=== PATIENT | male | born 1945 | race Caucasian/White ===

== ENCOUNTER → 2021-02-10 | Outpatient (CLI) | payer OTHER ==
[~2021-02-10] MED LIST: ASA81BEC PO; ASPIRIN EC325 M1 PO; FLOMAX0.4 MG PO; HYTRIN 2MG CAPSU2 M1 PO; ROSUVASTATIN CA10 MG PO
== END ==
LOC: SJCVC 14:29
PROVIDERS: ATTEND Internal Medicine
DX: R07.89 Other chest pain (principal); I25.10 Atherosclerotic heart disease of native coronary artery without angina pectoris; R93.1 Abnormal findings on diagnostic imaging of heart and coronary circulation; I10 Essential (primary) hypertension; E78.5 Hyperlipidemia, unspecified; Z79.82 Long term (current) use of aspirin; Z79.899 Other long term (current) drug therapy; Z87.891 Personal history of nicotine dependence

== ENCOUNTER 2021-02-18 07:55 | Inpatient (IN) | payer OTHER ==
[~2021-02-18] VITALS: Ht 154.9 cm; Wt 60.8 kg
[2021-02-18 08:32] LABS: HEMATOCRIT 46.1 % (42.0-52.0); HEMOGLOBIN 15.4 gm/dL (14.0-18.0); MCH 28.6 pg (26.0-34.0); MCHC 33.4 g/dL (28.0-37.0); MCV 85.7 fL (80.0-100.0); RBC 5.38 mil/uL (4.50-6.00); RDW 13.1 % (10.5-14.5); WBC 5.3 thou/uL (4.0-11.0)
[2021-02-18 08:43] VITALS: BP 163/72
[2021-02-18] MEDS ORDERED: ASA81BEC PO ×2 (08:48→09:00)
[2021-02-18 08:50] LABS: CALCIUM 8.9 mg/dL (8.5-10.1); CREATININE 1.1 mg/dL (0.7-1.3); POTASSIUM 3.7 mmol/L (3.5-5.1)
[2021-02-18] MEDS ORDERED: ROSUVASTATIN CA10 MG PO (08:55)
[2021-02-18] MEDS ORDERED: ASPIRIN EC325 M1 PO (08:55)
[2021-02-18] MEDS ORDERED: FLOMAX0.4 MG PO (08:57)
[2021-02-18] MEDS ORDERED: HYTRIN 2MG CAPSU2 M1 PO (08:59)
--- NOTE | 2021-02-18 10:42 | EKG ---
[place] [address] [facility] [place] [address] ELECTROCARDIOGRAM REPORT Name: RUBEN RICHARDSON Room #: REG [facility] Pauline#: [id number] Admission: 02/18/21 Attend Phys: Roger Lyons Discharge: Date of : 47 Report #: [id number] [facility] Test Date: 2021-02-18 Test Time: 08:32:49 Pat Name: RUBEN RICHARDSON Department: Room: Gender: Language Interpreter: [facility] SHELDON : 1945 Requested By: Roger Lyons Order Number: [id number] MD: Joao Hobbs Measurements Intervals [place] Rate: 71 P: 61 SD: 144 QRS: 33 QRSD: 91 T: 39 QT: 415 QTc: 451 Interpretive Statements Sinus rhythm Abnormal R-wave progression, early transition No previous ECG available for comparison Electronically Signed On 02-18-2021 10:41:44 REPAIRER HANDTOOLS by Joao Hobbs [email or web address] <ELECTRONICALLY SIGNED> By: Joao Hobbs MD, [facility] 02/18/21 1041 0832 0832 Joao Hobbs MD, FACC /EPI
--- NOTE | 2021-02-18 15:43 | EKG ---
[address] [address] ELECTROCARDIOGRAM REPORT Name: RUBEN RICHARDSON Room #: 243-P ADM IN M.R.#: [id number] Admission: 02/18/21 Attend Phys: Roger Lyons Discharge: Date of : 47 Report #: [id number] [facility] Test Date: 2021-02-18 Test Time: 11:54:24 Pat Name: RUBEN RICHARDSON Department: Room: 243 Gender: M Master Merchandiser: YASH : 1945 Requested By: Roger Lyons Order Number: [id number] MD: Joao Hobbs Measurements Intervals [place] Rate: 54 P: 91 MN: 111 QRS: -18 QRSD: 131 T: 1 QT: 443 QTc: 420 Interpretive Statements Sinus rhythm Borderline short MN interval Left ventricular hypertrophy Anterolateral infarct, acute (LAD) Baseline wander in lead(s) V5 Compared to ECG 02/18/2021 08:32:49 Left ventricular hypertrophy now present Myocardial infarct finding now present Electronically Signed On 02-18-2021 15:42:28 GAS STATION OPERATOR by Joao Hobbs [email or web address] <ELECTRONICALLY SIGNED> By: Joao Hobbs MD, FACC 02/18/21 1542 1154 1154 Joao Hobbs MD, [facility] /EPI
--- NOTE | 2021-02-18 17:45 | NUR ---
at 1520 admitted to icu #243 after report from Fartun, pie bakery laborer RN. pt from the pie bakery laborer post stent to LAD, angioplasty to diagonal and circumflex on the IABP. settings: IABP, pattern 1:1, 30cc balloon, helium in tank greater than 1/2 full, augmenting see computer documentation, hand written IABP flowsheet and IABP strip. denies any cardiac symptoms or chest pain at this time. alert/oriented, primarily greek speaking, Nuris Ching-daughter- [phone] present speaking fluent sinhala and translating. sr, separate venous sheath in L groin placed immediately below IABP insertion site. dopamine, amiodarone and angiomax infusing. 100% non rebreather on arrival, down to 4l/nc, tolerating sips of water, carranza with large amount of urine output. , daughter and several family members one by one in and out of pt room. pt progressing and remains chest pain free.
[2021-02-18 20:00] VITALS: BP 125/56
[2021-02-18 21:00] VITALS: BP 142/57
[2021-02-18 22:00] VITALS: BP 142/67
[2021-02-18 23:05] VITALS: BP 132/60
[2021-02-19] VITALS (16 sets, daily range): BP systolic 113–142; BP diastolic 44–65
--- NOTE | 2021-02-19 06:23 | NUR ---
Pt progressing toward goals. Able to titrate Dopamine from 10 mcg/kg/min down to 5 mcg/kg/min. Amiodorone decreased from 1 mg/min to 0.5 mg/min per protocol. VS stable. Able to titrate IABP from 1:1 to 1:2; VS remain stable. Pt remains on 2 L per nasal canula, O2 sat greater than 95%. Extremities warm with palpable pulses. Right and left groin sites remain without bleeding or hematoma. Dressings C/D/I. Urine output per carranza 2125 cc this shift. Urine initially blood tinged, but now sabino-orange. Pt had one episode of nausea with small amount of emesis, but no further episodes since receiving Zofran. No chest pain or tightness.
[2021-02-19 10:24] LABS: CREATININE 0.8 mg/dL (0.7-1.3); INR 0.98; POTASSIUM 3.3 mmol/L (3.5-5.1); PROTIME 10.7 Seconds (10.5-12.1)
[2021-02-19 11:30] LABS: HEMATOCRIT 41.8 % (42.0-52.0); HEMOGLOBIN 13.8 gm/dL (14.0-18.0); MCH 28.1 pg (26.0-34.0); MCHC 33.1 g/dL (28.0-37.0); MCV 85.1 fL (80.0-100.0); RBC 4.91 mil/uL (4.50-6.00); RDW 13.1 % (10.5-14.5); WBC 12.6 thou/uL (4.0-11.0)
--- NOTE | 2021-02-19 11:32 | NUR ---
Chart reviewed and case discussed with the care team. Pt remains in ICU s/p cardiac cath with stent placement. His dtr Nuris is his primary contact as she is bilingual. Cable Assembler And Swager spoke with Nuris and CM role introduced. She indicates that the pt lives indep with his spouse at home. He has no dme or hh history. His pcp is Dr. Roberta George. He was driving and active prior to admission. He has good family support. No dc planning needs anticipated at this time. Will remain available should needs arise.
--- NOTE | 2021-02-19 18:08 | NUR ---
episode of nausea/small emesis this am. zofran administered. tolerated ice water, then clear liquids for lunch. denied cardiac discomfort/chest pain. at 1700, titrating dopamine in relationship to augmented diastolic peak pressure (PDP). see IABP Flowsheet for vital signs, IABP details. several family members present to see pt. in addition, pt face timing with family. progressing.
[2021-02-20] VITALS (23 sets, daily range): BP systolic 93–144; BP diastolic 50–68
[2021-02-20 10:13] LABS: CALCIUM 8.1 mg/dL (8.5-10.1); CREATININE 0.8 mg/dL (0.7-1.3); MAGNESIUM 2.2 mg/dL (1.8-2.4)
--- NOTE | 2021-02-20 20:25 | NUR ---
CARDIOLOGY REMOVED IABP AT BEDSIDE AT 1515. HOMEOSTATIS ACHIEVED AT 1530. DRESSING REMAINED C/D/I WITH NO HEMATOMA THROUGHOUT SHIFT. PT AND FAMILY AND ON BEDREST AND PRECAUTIONS.
[2021-02-21] VITALS (19 sets, daily range): BP systolic 99–134; BP diastolic 57–69
--- NOTE | 2021-02-21 13:17 | NUR ---
RN CALLED DR ROBERT ASKING TO PULL THE LEFT FEMORAL SHEATH. DR ROBERT STATED RN CALL PULL SHEALEC AND PT NEEDS TO LAY FLAT FOR 4 HOURS POST TAKING THE SHEATH OUT. RN PULLED THE SHEATH OUT AT 12;45 AND HELD PRESSURE UNTIL 1300. RN PLACED A PRESSURE DRESSING ON LEFT GROIN SITE. PT HAS UNTIL 1700 UNTIL HE IS ABLE TO SIT UP. RN WILL CONTINUE TO MONITOR THE GROIN SITE. AFTER [id number] SHEATH THERE WAS NO HEMATOMA OR BLEEDING PRESENT.
[2021-02-22] VITALS (15 sets, daily range): BP systolic 104–142; BP diastolic 53–68
[2021-02-22 04:15] LABS: HEMATOCRIT 37.8 % (42.0-52.0); MCHC 34.3 g/dL (28.0-37.0); MCV 84.7 fL (80.0-100.0); RBC 4.46 mil/uL (4.50-6.00); RDW 13.3 % (10.5-14.5); WBC 6.6 thou/uL (4.0-11.0)
--- NOTE | 2021-02-22 06:33 | NUR ---
PT PROGRESSING WELLL TOWARDS D/C GOALS. VSS AFEBRILE. NO S/S BLEEDING OR HEMATOMA NOTED AT GROIN SITES. PEDAL PULSES ARE STRONG. FEET ARE WARM. NO C/O PAIN TONIGHT.
--- NOTE | 2021-02-22 18:32 | NUR ---
PT TRANSFERED FROM ICU. IN STABLE CONDITION. DENIED HAVING PAIN OR DISCOMFORT. FAMILY AT THE BEDSIDE.
[2021-02-23 04:45] VITALS: BP 117/60
--- NOTE | 2021-02-23 06:13 | NUR ---
PATIENT CARES WHERE ASSUMED AT SHIFT CHANGE. PATIENT ASSESSED AND MEDS WHERE PASSED. PATIENT IS EMIRATI SPEEKING WITH LITTLE MONGOLIAN. PATIENT DENIES AND NAUSEA OR PAIN. PATIENT HAD A RESTFUL NIGHT.APPERED TO SLEEP APPROXAMETLY EIGHT HOURS. ROUNDS WHERE DONE. THE BED IS IN A LOW AND LOCKED POSITION.
[2021-02-23 07:32] VITALS: BP 126/66
[2021-02-23 11:33] VITALS: BP 123/61
[2021-02-23 15:28] VITALS: BP 128/54
--- NOTE | 2021-02-23 16:29 | NUR ---
spoke with dtr, patient and . Family reports they are working with immigration to have son who resides in [place] come to see patient. They need letter from phys on patients condition to give to Immigration. Plan to updated phys.
--- NOTE | 2021-02-23 18:00 | NUR ---
Pt A & O x4. Pt VS stable. Pt received medications as ordered. Pt is room air. Pt had family at bedside. Pt is NSR on the tele. Pt is x 1 assist with ADLs and cares. Pt is able to make needs known. Pt denies pain/discomfort this shift.
[2021-02-23 20:17] VITALS: BP 128/54
--- NOTE | 2021-02-24 01:00 | NUR ---
patients cares where assumed at shift change. patient was assessed and meds where passed. patient is on stand by due to starting a new blood thinner today. patient denies any chest pain, patient also denies being light headed, and faint like. patient is in sinus rythem with a heart rate of 65. For teaching this shift nursing went over the new medication of Ticagrelor and the sife effects. rounding was done. The bed is in a low and locked position.
[2021-02-24 05:49] VITALS: BP 117/69
[2021-02-24 07:32] VITALS: BP 119/71
--- NOTE | 2021-02-24 08:08 | EKG ---
[address] [place] [address] ELECTROCARDIOGRAM REPORT Name: RUBEN RICHARDSON Room #: 213-P ADM IN M.R.#: [id number] Admission: 02/18/21 Attend Phys: Roger Lyons Discharge: Date of : 47 Report #: [id number] [facility] Test Date: 2021-02-23 Test Time: 11:56:26 Pat Name: RUBEN RICHARDSON Department: Room: 213 P Gender: M Computer Instructor: YASH : 1945 Requested By: Mora Gonzales Order Number: [id number] MD: Raul Ovalles Measurements Intervals [place] Rate: 65 P: 64 WV: 142 QRS: 70 QRSD: 90 T: 68 QT: 414 QTc: 431 Interpretive Statements Sinus rhythm No significant abnormality Compared to ECG 02/18/2021 11:54:24 Anterolateral injury pattern no longer present Electronically Signed On 02-24-2021 8:08:30 SOLUTIONS ENGINEER by Raul Ovalles [email or web address] <ELECTRONICALLY SIGNED> By: Raul Ovalles MD, [facility] 02/24/21 0808 1156 115 Raul Ovalles MD, FACC /EPI
[2021-02-24 09:38] LABS: ABSOLUTE NEUTROPHILS 5.4 thou/uL (1.4-8.2); HEMATOCRIT 38.4 % (42.0-52.0); LYMPHOCYTES 11.4 % (24.0-44.0); MCHC 33.9 g/dL (28.0-37.0); MCV 85.7 fL (80.0-100.0); MONOCYTES 9.5 % (1.0-8.0); PLATELET COUNT 175 thou/uL (150-400); POLYS 75.1 % (36.0-66.0); RBC 4.48 mil/uL (4.50-6.00); RDW 12.8 % (10.5-14.5); WBC 7.2 thou/uL (4.0-11.0)
[2021-02-24 10:07] LABS: ANION GAP 12 mmol/L (7-16); BUN 15 mg/dL (7-18); CALCIUM 8.8 mg/dL (8.5-10.1); CHLORIDE 101 mmol/L (98-107); CHOLESTEROL 96 mg/dL (<200); CO2 23 mmol/L (21-32); CREATININE 0.9 mg/dL (0.7-1.3); GLUCOSE 162 mg/dL (74-106); HDL CHOLESTEROL 38 mg/dL (>40); LDL CHOLESTEROL 41 mg/dL (<100); MAGNESIUM 1.9 mg/dL (1.8-2.4); POTASSIUM 3.8 mmol/L (3.5-5.1); SODIUM 136 mmol/L (136-145); TC:HDL 2.5 Ratio (Not establshd); TRIGLYCERIDE 89 mg/dL (<150); VLDL 18 mg/dL (<40)
[2021-02-24 11:25] VITALS: BP 116/67
[2021-02-24 12:28] VITALS: BP 116/67
--- NOTE | 2021-02-24 12:28 | NUR ---
Pt and dtr provided with a letter verifying he was an inpt here thru today. No other needs noted. Pt to f/u with his pcp. Has good family support.
--- NOTE | 2021-02-24 12:33 | 2DMMODE ---
[facility] [place] [address] 2 D/M-MODE ECHOCARDIOGRAM Name: RUBEN RICHARDSON Room #: 213-P ADM IN M.R.#: [id number] Admission: 02/18/21 Attend Phys: Roger Lyons Discharge: Date of : 47 Report #: [id number] THIS REPORT FOR: cc: Roberta George MD,Joao Kiser MD, MD [facility] ~ APPROVED REPORT Study performed: 02/24/2021 11:30:34 EXAM: Comprehensive 2D, Doppler, and color-flow Echocardiogram Patient Location: Bedside Room #: 213 Status: routine BSA: 1.59 HR: 68 bpm BP: 119/71 mmHg Rhythm: NSR Other Information Study Quality: Adequate Indications CAD S^P PCI, Cardiogenic shock 2D Dimensions RVDd: 32.37 mm IVC: 13.00 mm Volumes Left Atrial Volume (Systole) Single Plane 4CH: 32.92 mL Single Plane 2CH: 29.83 mL LA ESV Index: 23.00 mL/m2 Aortic Valve AoV Peak Feliciano.: 1.42 m/s AO Peak Gr.: 8.09 mmHg LVOT Max P.72 mmHg LVOT Max V: 1.20 m/s Mitral Valve E/A Ratio: 0.5 MV Decel. Time: 311.16 ms MV E Max Feliciano.: 0.55 m/s [facility] [address] [place] [address] 2 D/M-MODE ECHOCARDIOGRAM Name: RUBEN RICHARDSON Room #: 213-P ADM IN M.R.#: [id number] Admission: 02/18/21 Attend Phys: Roger Delcid Discharge: Date of : 47 Report #: [id number] MV A Feliciano.: 1.12 m/s MV PHT: 90.24 ms IVRT: 138.41 ms Pulmonary Valve PV Peak Feliciano.: 0.92 m/s PV Peak Gr.: 3.36 mmHg Pulmonary Vein P Vein S: 0.46 m/s P Vein A: 0.36 m/s P Vein D: 0.27 m/s P Vein A Dur.: 110.7 msec P Vein S/D Ratio: 1.70 Tricuspid Valve TR Peak Feliciano.: 2.38 m/s TR Peak Gr.: 22.70 mmHg PA Pressure: 28.00 mmHg Left Ventricle The left ventricle is normal size. There is normal LV segmental wall motion. There is normal left ventricular wall thickness. The left ventricular systolic function is normal. The left ventricular ejection fraction is within the normal range. LVEF is 55-60%. Grade I - abnormal relaxation pattern. Right Ventricle The right ventricle is normal size. The right ventricular systolic function is normal. Atria The left atrium size is normal. The right atrium size is normal. Aortic Valve The aortic valve is normal in structure. No aortic regurgitation is present. There is no aortic valvular stenosis. Mitral Valve The mitral valve is normal in structure. Trace mitral regurgitation. No evidence of mitral valve stenosis. Tricuspid Valve The tricuspid valve is normal in structure. There is trace tricuspid regurgitation. Estimated PAP 28 mmHg. There is no pulmonary hypertension. Pulmonic Valve [facility] [address] [place] [address] 2 D/M-MODE ECHOCARDIOGRAM Name: RUBEN RICHARDSON Room #: 213-P ADM IN [facility].#: [id number] Admission: 02/18/21 Attend Phys: Roger Delcid Discharge: Date of : 47 Report #: [id number] The pulmonary valve is normal in structure. There is no pulmonic valvular regurgitation. Great Vessels The aortic root is normal in size. IVC is normal in size and collapses >50% with inspiration. Pericardium There is no pericardial effusion. <Conclusion> Normal left ventricle size/wall thickness Ejection fraction 55-60%, no obvious segmental wall motion abnormality Normal right ventricle size/function Normal atrial size Normal aortic/mitral valve structure and function Trace tricuspid valve insufficiency Pulmonary systolic pressure estimated 28 mmHg No pericardial effusion Normal aortic root size <ELECTRONICALLY SIGNED> By: Joao Hobbs MD, [facility] 02/24/21 1232 1232 1232 Joao Hobbs MD, FACC /INF
--- NOTE | 2021-02-24 13:39 | NUR ---
TOOK OVER CARE OF THIS PATIEN AT 1200. PATIENT RESTING IN RECLINER WITH FAMILY PRESENT. PATIENT EATING LUNCH; PATIENT HAS HAD GOOD APPETITE. PATIENT DAUGHTER ASSISTS WITH TRANSLATING QUESTIONS AND RESPONSES FOR PATIENT. PATIENT HAS GOOD SUPPORT SYSTEM. PATIENT DENIES PAIN, CHEST PAIN, SOA, PALPATIONS, DIZZINESS, NAUSEA, AND VOMITING. ASSESSMENTS CHARTED. VSS. WILL CONTINUE TO MONITOR. FALL PRECAUTIONS IN PLACE. CALL LIGHT WITHIN REACH.
[2021-02-24 15:25] VITALS: BP 116/69
[2021-02-24 19:38] VITALS: BP 118/72
[2021-02-25 02:06] LABS: GLYCOHEMOGLOBIN (HGB A1C) 5.7 % (4.8-5.6)
[2021-02-25 03:32] LABS: HEMATOCRIT 38.1 % (42.0-52.0); HEMOGLOBIN 13.1 gm/dL (14.0-18.0); MCH 29.2 pg (26.0-34.0); MCHC 34.4 g/dL (28.0-37.0); MCV 84.8 fL (80.0-100.0); RBC 4.49 mil/uL (4.50-6.00); WBC 7.6 thou/uL (4.0-11.0)
--- NOTE | 2021-02-25 04:18 | NUR ---
assumed pt care at shift change, alert and oriented, marco antonio pain or sob, sr on tele, assessments as charted, meds given as per mar, no needs at this time, progressing well towards poc, plan for discharge today, will continue to monitor
[2021-02-25 04:29] VITALS: BP 116/56
[2021-02-25 07:30] VITALS: BP 115/63
[2021-02-25] MEDS ORDERED: BRILINTA90 MG PO (08:14)
[2021-02-25] MEDS ORDERED: PROTONIX40 M2 PO (08:14)
[2021-02-25] MEDS ORDERED: CRESTOR40 MG PO (08:14)
[2021-02-25] MEDS ORDERED: LISINOPRIL2.5 MG PO (08:14)
[2021-02-25 09:41] VITALS: BP 116/67
--- NOTE | 2021-02-25 10:20 | NUR ---
DISCHARGED PATIENT. EXPLAINED DISCHARGE INSTRUCTIONS TO PATIENT AND DAUGHTER. ADULT DAUGHTER WAS ASSISSTING WITH TRANSLATING INSTRUCTIONS TO PATIENT. HIGHLIGHTED UPCOMING APPOINMENTS AND NEW/CHANGED MEDICATIONS. PATIENT STATED HE UNDERSTOOD AND DENIED HAVING ANY ADDITIONAL QUESTIONS. PT WAS TAKING OFF UNIT VIA WHEEL CHAIR.
[2021-02-25 10:23] VITALS: BP 116/67
--- NOTE | 2021-03-17 11:02 | CATHLAB ---
[facility] [place] [address] INVASIVE PROCEDURE REPORT Name: RUBEN RICHARDSON Room #: 213-P DIS IN M.R.#: [id number] Admission: 02/18/21 Attend Phys: Roger Lyons Discharge: 02/25/21 Date of : 47 Report #: [id number] THIS REPORT FOR: cc: Roberta George MD, Maria MD Lammoglia, Francisco J. MD ~ APPROVED REPORT Study performed: 02/18/2021 13:30:40 Patient Details Patient Status: Out-Patient Room #: Event Personnel Roger Lyons Risk Assessment Consultant; Dede Hicks Monitor; Elis Ramirez Scrub; Fartun Maldonado bulk loader Performed A FiberOptix 8f 30CC balloon pump was inserted into the left femoral artery and secured with suture. Indication STEMI (>0 to less than or equal to 6 hours), Ongoing chest pain post stenting, hemodynamic compromise Risk Factors Coronary Artery Disease, Diabetes Procedure Narrative The patient was brought emergently to the Cardiac Catheterization Laboratory and was prepped and draped in a sterile manner. The right femoral region was infiltrated with 1% Lidocaine subcutaneous anesthesia. IV conscious sedation was used throughout procedure with appropriate monitoring and was performed in the presence of a registered nurse who was an independent trained observer other than the physician performing the procedure. There was no hematoma. Utilizing a modified sewing technique the right femoral had been accessed prior to secondary to the acute angioplasty and stenting. The patient subsequently had a standard 9 [place] intra-aortic balloon pump inserted per his protocol. Visualization and confirmation of post positioning was performed. The sheath was sewn in place balloon was sewn in place and patient subsequently taken to the ICU in stable but guarded condition [place] [address] [place] [address] INVASIVE PROCEDURE REPORT Name: RUBEN RICHARDSON Room #: 213-P [facility]#: [id number] Admission: 02/18/21 Attend Phys: Roger Delcid Discharge: 02/25/21 Date of : 47 Report #: [id number] Intraoperative Conscious Sedation Sedation start time: 11:09 Case end Time: 14:01 Versed 2.0 mg Sedation and time are a combined total of a diagnostic heart cath, an intervention, and a balloon pump placement. Fluoro Time: :53 minutes Dose: DAP 670.83 cGycm2 29 mGy Conclusion 1. Successful insertion of a intra-aortic counterpulsation balloon pump placed on 1:2 <ELECTRONICALLY SIGNED> By: Roger Lyons MD 03/17/21 1101 1101 1101 Roger Lyons MD /INF
--- NOTE | 2021-03-19 17:48 | CATHLAB ---
[facility] [place] [address] INVASIVE PROCEDURE REPORT Name: RUBEN RICHARDSON Room #: 213-P DIS IN M.R.#: [id number] Admission: 02/18/21 Attend Phys: Roger Lyons Discharge: 02/25/21 Date of : 47 Report #: [id number] THIS REPORT FOR: cc: Roberta George MD, Maria MD Lammoglia, Francisco J. MD ~ APPROVED REPORT Study performed: 02/18/2021 10:51:52 Patient Details Patient Status: Out-Patient Room #: Event Personnel Roger Lyons Fire Control Assistant; Dede Hicks Monitor; Elis Ramirez Scrub; Fartun Maldonado pyrometer mechanic Performed Left Heart Cath with Coronaries, supervision of conscious sedation Indication Positive stress test, Chest pain Procedure Narrative A 4F PINNACLE sheath was inserted into the RFA. Coronary angiography was performed using coronary diagnostic catheters. The right coronary system was accessed and visualized with a JR4 catheter. The left coronary system was accessed and visualized with a JL4 catheter. The left ventricle was accessed and visualized with a JR4 catheter. Hemostasis was obtained with manual pressure following sheath removal without any complications. There was no hematoma. Intraoperative Conscious Sedation Sedation start time: 11:09 Case end Time: 14:01 Versed 2.0 mg Sedation and time are a combined total of a diagnostic heart cath, an intervention, and a balloon pump placement. Fluoro Time: 3.5 minutes Dose: DAP 1911.10 cGycm2 261 mGy Contrast Type and Amount: omni 45 [facility] [place] [address] INVASIVE PROCEDURE REPORT Name: RUBEN RICHARDSON Room #: 213-P [facility] IN .[place].#: [id number] Admission: 02/18/21 Attend Phys: Roger Delcid Discharge: 02/25/21 Date of : 47 Report #: [id number] Coronary Angiography The patient's coronary anatomy is right dominant. Diagnostic Cath Left Main Moderate caliber vessel of normal origin bifurcates left anterior descending left circumflex. The vessel tapers to a greater than 80% stenosis in its distal portion prior to the bifurcation into the left anterior descending left circumflex. Heavy epicardial calcifications are noted. LAD Small caliber type III vessel with a greater than 80% stenosis at its origin and reconstitutes and there is an eccentric plaque noted with a linear dissection present. The vessel continues in the anterior interventricular sulcus not apparently having hemodynamic flow issues from that plaque. It gives rise to septal diagonal branches as it rapidly tapers towards the apex Diagonal 1 Moderate caliber vessel without high-grade lesion Diagonal 2 Small caliber vessel without significant stenosis Circumflex Moderate caliber vessel with a ostial lesion involving the left main and left anterior descending. Then reconstitutes itself gives rise to a small caliber marginal branch. Continues on gives rise to moderate caliber second marginal and terminates the posterior wall branch is quite small in size there are luminal irregularities noted but no high-grade lesion OM1 Small diminutive size vessel OM2 Moderate caliber vessel without significant high-grade lesion Right Coronary Moderate caliber vessel of normal origin proceeds in the AV groove giving rise to small RV marginal branch. Then proceeds posteriorly to the crux of the heart rate gives rise to posterior descending artery and 2 small posterior wall branches R PDA Small caliber vessel coursing the posterior interventricular sulcus free of significant high-grade lesion Left Ventriculography Left Ventriculography was not performed. Hemodynamics The aortic pressure is 155/58 mmHg with a mean of 85 mmHg. The left ventricular pressure is 158/25 mmHg with a mean of mmHg. The left ventricular end diastolic pressure is 44 mmHg. Conclusion 1. Coronary disease severe involving the distal left main proximal LAD proximal circumflex with evidence of a spontaneous linear [facility] [address] [address] INVASIVE PROCEDURE REPORT Name: JENNY RICHARDSONGE Room #: 213-P DIS IN M.R.#: [id number] Admission: 02/18/21 Attend Phys: Roger Delcid Discharge: 02/25/21 Date of : 47 Report #: [id number] dissection without decreased blood flow currently 2. Abnormal hemodynamics elevated low ventricular end-diastolic pressures Recommendations Consult cardiothoracic surgery for urgent aortocoronary bypass grafting <ELECTRONICALLY SIGNED> By: Roger Lyons MD 03/19/21 1747 46 46 Roger Lyons MD /INF
--- NOTE | 2021-03-23 09:25 | CATHLAB ---
[facility] [place] [address] INVASIVE PROCEDURE REPORT Name: RUBEN RICHARDSON Room #: 213-P DIS IN M.R.#: [id number] Admission: 02/18/21 Attend Phys: Roger Lyons Discharge: 02/25/21 Date of : 47 Report #: [id number] THIS REPORT FOR: cc: Roberta George MD, Maria MD Lammoglia, Francisco J. MD ~ APPROVED REPORT Study performed: 02/18/2021 11:57:17 Patient Details Patient Status: Out-Patient Room #: The patient is a 75 year-old male Event Personnel Roger Lyons Kick Boxer, Felice Neves Kick Boxer, Dede Hicks RTR Monitor, Jannette Ramirez RTR Scrub, Fartun Maldonado RN RN, Cortney Mann RN, Angelina Abdul RN RN, Rachel Gomes RTR, CONDUIT HELPER Community Pharmacist Procedures Performed Art Access - R femoral artery* HUGH Place w/wo Plasty Single Left Main 121914 Hemostasis w/ Mynx 62235 Initial Mod Sed Same Phys/QHP Gr5y [id number] 47001 Mod Sed Same Phys/QHP Ea 889115, supervision conscious sedation Indication STEMI (>0 to less than or equal to 6 hours) Procedure Narrative The Right Groin^ was infiltrated with 1% Lidocaine subcutaneous anesthesia. A PINNACLE 6FR Sheath #[id number] sheath was inserted into the RFA. Coronary angiography was performed using coronary diagnostic catheters. Closure device was deployed with a Fr MYNXGRIP 6/7F #[id number]. There was no hematoma. Intraoperative Conscious Sedation Sedation start time: 11:09 Case end Time: 14:01 Versed 2 mg Sedation and time are a combined total of a diagnostic heart cath, an intervention, and a balloon pump placement. Fluoro Time: 18:54 minutes [facility] [place] [address] INVASIVE PROCEDURE REPORT Name: RICHARDSON,RUBEN Room #: 213-P [facility] IN M.R.#: [id number] Admission: 02/18/21 Attend Phys: Roger Delcid Discharge: 02/25/21 Date of : 47 Report #: [id number] Dose: DAP 54619.22 cGycm2 2525 mGy Contrast Type and Amount: Omnipaque 210 Diagnostic Cath Left Main Distal left main is patent post procedure. LAD Subtotally occluded proximally as stated on the cath report and subsequent flow NOMAN-3 post stenting was noted. First diagonal branch had a moderate residual ostial lesion but flow was NOMAN-3 post balloon dilatation Hemodynamics The aortic pressure is 93/41 mmHg with a mean of 48 mmHg. PCI Technique The lesion was identified at the distal left main limited dissection that had been previously identified. Following this a 6 Slovenian system was utilized and engaged the left Juan F 4 catheter. This catheter was not satisfactory was exchanged for a XB 3.5 left coronary cannulated. 014 wires were then advanced into the left anterior coronary artery. Initial dilatation of the distal left main and LAD was performed with marginal results. Compromise of both the first diagonal and circumflex origin were noted and a wire was then advanced into the left circumflex coronary system utilizing noted balloon dilatation was performed. At this point time flow was reestablished both LAD and left circumflex although it was NOMAN II. Left anterior descending lesion was then stented with the noted stent and dilated. First diagonal origin was compromised after subsequent inflation with the need for dilatation. Wire was then advanced into the diagonal and balloon was dilated as noted above. Results were satisfactory and no stenting performed. After these dilatations the left circumflex ostium was reasonable with antegrade flow being NOMAN-3 and diagonal origin was also recently dilated. Left anterior descending flow was satisfactory and NOMAN-3 with distal left main no longer involved. Decision for balloon pump was then carried forth and placed as per separate report. Patient tolerated procedure and was taken to the ICU in critical condition PCI Technique Lesion Percutaneous coronary intervention was performed on the LM. A VISTA 6FR XB 3.5 #[id number] Guide Catheter was used to engage the ostium. A Luge Wire .014 x 182CM #[id number] Interventional Guidewire was used to cross the lesion. BALLOON DILATION A Balloon catheter Euphora RX 2.5 x 15 #[id number] was inserted and inflated up to 10.00atm for 13seconds. Additional Inflation: 10.00atm [facility] [address] [place] [address] INVASIVE PROCEDURE REPORT Name: RUBEN RICHARDSON Room #: 213-P [facility] IN M.R.#: [id number] Admission: 02/18/21 Attend Phys: Roger Delcid Discharge: 02/25/21 Date of : 47 Report #: [id number] for 6seconds. Additional Inflation: 14.00atm for 7seconds. Additional Inflations: 14 al for 6 seconds. STENT DEPLOYMENT A drug-eluting stent RESOLUTE MAYKEL RX 3.0 X 22 #[id number] was inserted and inflated up to 12.00atm for 10seconds. Additional Inflation: 20.00atm for 7seconds. POST STENT DEPLOYMENT BALLOON DILATION A Balloon catheter Euphora NC RX 3.5 x 8 #[id number] was inserted and inflated up to 20.00atm for 8seconds. A balloon catheter Euphora NC RX 3.0 x 12 was inserted and inflated in the DIAG at 18 al for 8 seconds. PCI Technique Lesion 2 Percutaneous Coronary Intervention was performed on the proximal circumflex artery segment. A VISTA 6FR XB 3.5 #[id number] Guide Catheter was used to engage the ostium. A Luge Wire .014 x 182CM #[id number] Interventional Guidewire was used to cross the lesion. Balloon Dilation A Balloon catheter Euphora RX 2.0 x12 #[id number] was inserted and inflated up to 12.00atm for 6seconds. Additional Inflation: 10.00atm for 10seconds. Conclusion 1. 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 Abnormal hemodynamics 3. Successful stenting of the left anterior descending artery with HUGH stent as noted above 4. Successful balloon dilatation of the proximal first diagonal branch Recommendations Aggressive Medical Therapy Intra-aortic counterpulsation balloon pump will be inserted. Post stenting dual antiplatelet therapy continued <ELECTRONICALLY SIGNED> By: Roger Lyons MD 03/23/21923 3 09 Roger Lyons MD /INF
== END 2021-02-25 11:09 | disposition home or self-care (01) | DRG 270 ==
LOC: CATH 07:55 → ICU 15:08 → 2N 02-22 14:10
PROVIDERS: Hospitalist; Internal Medicine Cardiovascular Disease; Nurse Practitioner; ADMIT Internal Medicine; ATTEND Internal Medicine
PROC: 027034Z Dilation of Coronary Artery, One Artery with Drug-eluting Intraluminal Device, Percutaneous Approach (ICD-10-PCS; principal; 2021-02-18)
PROC: 02713ZZ Dilation of Coronary Artery, Two Arteries, Percutaneous Approach (ICD-10-PCS; principal; 2021-02-18)
PROC: 5A02210 Assistance with Cardiac Output using Balloon Pump, Continuous (ICD-10-PCS; principal; 2021-02-18)
PROC: 4A023N7 Measurement of Cardiac Sampling and Pressure, Left Heart, Percutaneous Approach (ICD-10-PCS; principal; 2021-02-18)
PROC: B2111ZZ Fluoroscopy of Multiple Coronary Arteries using Low Osmolar Contrast (ICD-10-PCS; principal; 2021-02-18)
DX: I25.110 Atherosclerotic heart disease of native coronary artery with unstable angina pectoris (principal); R57.0 Cardiogenic shock; R33.9 Retention of urine, unspecified; I10 Essential (primary) hypertension; E78.5 Hyperlipidemia, unspecified; N40.1 Benign prostatic hyperplasia with lower urinary tract symptoms; M19.90 Unspecified osteoarthritis, unspecified site; R73.02 Impaired glucose tolerance (oral); I49.3 Ventricular premature depolarization; Z20.822 Contact with and (suspected) exposure to COVID-19; Z79.899 Other long term (current) drug therapy; Z79.82 Long term (current) use of aspirin; Z86.73 Personal history of transient ischemic attack (TIA), and cerebral infarction without residual deficits
CPT/HCPCS: 10078; 10081; 65040

== ENCOUNTER → 2021-03-18 | Outpatient (CLI) | payer OTHER ==
[~2021-03-18] MED LIST changes: +BRILINTA90 MG PO; +CRESTOR40 MG PO; +LISINOPRIL2.5 MG PO; +PROTONIX40 M2 PO
== END ==
LOC: SJCVCIMAG 08:08
PROVIDERS: ATTEND Internal Medicine
DX: I25.10 Atherosclerotic heart disease of native coronary artery without angina pectoris (principal)